=== PATIENT | male | born 1965 | race African-American/Black ===

== ENCOUNTER 2019-08-20 11:41 | Inpatient (IN) | payer OTHER ==
[~2019-08-20] VITALS: Ht 182.9 cm; Wt 56.4 kg
[~2019-08-20 11:41] MED LIST: ACT15 PO; GLIMEPIRIDE2 M1 PO; LANTUS SOLOS100 U/M1 SQ
[2019-08-20 11:50] VITALS: Ht 182.9 cm; Wt 56.4 kg
[2019-08-20 12:23] LABS: BASOPHIL % 0.5 % (0-2); PLATELET COUNT 167 x10^3mcL (130-400)
[2019-08-20 12:24] LABS: RED CELL DISTRIBUTION WIDTH 17.1 % (11.5-14.5)
[2019-08-20 12:46] LABS: BILIRUBIN TOTAL 0.1 mg/dL (0.20-1.00); CARBON DIOXIDE 13.7 mmol/L (21-32); CREATININE SERUM 3.1 mg/dL (0.7-1.3)
[2019-08-20] MEDS ORDERED: NOR5 PO (12:50)
[2019-08-20] MEDS ORDERED: PEPCID AC20 M2 PO (12:50)
[2019-08-20] MEDS ORDERED: KAPVAY0.1 MG PO (12:51)
[2019-08-20] MEDS ORDERED: SODIUM BICARBO650 MG PO (12:51)
[2019-08-20] MEDS ORDERED: COZ25 PO (12:52)
[2019-08-20 13:01] LABS: FREE T4 0.99 ng/dL (0.76-1.46); FREE THYROXINE INDEX 1.8 ug/dL (1.4-4.5); T4(THYROXINE) 5.3 ug/dL (4.7-13.3)
[2019-08-20 13:36] LABS: ALBUMIN 1.8 g/dL (3.4-5.0); POTASSIUM SERUM 6.2 mmol/L (3.5-5.1)
[2019-08-20 17:20] LABS: CALCIUM 7.7 mg/dL (8.5-10.1); CARBON DIOXIDE 12.5 mmol/L (21-32); CREATININE SERUM 3.2 mg/dL (0.7-1.3); POTASSIUM SERUM 5.3 mmol/L (3.5-5.1)
[2019-08-20 22:30] LABS: T3 TOTAL 0.72 ng/mL
[2019-08-21 07:35] LABS: CALCIUM 7.4 mg/dL (8.5-10.1); CARBON DIOXIDE 11.5 mmol/L (21-32); CREATININE SERUM 3.5 mg/dL (0.7-1.3); MAGNESIUM 1.8 mg/dL (1.8-2.4); PHOSPHOROUS 4.5 mg/dL (2.5-4.9)
[2019-08-21 07:36] LABS: BASOPHIL % 0.5 % (0-2); PLATELET COUNT 176 x10^3mcL (130-400)
[2019-08-21 09:05] VITALS: BP 155/82
[2019-08-21 09:22] LABS: rbc morphology (normal/abnorm) ABNORMAL (NORMAL)
[2019-08-21 12:41] VITALS: BP 141/51
[2019-08-21 13:07] LABS: CALCIUM 7.5 mg/dL (8.5-10.1); CARBON DIOXIDE 12.3 mmol/L (21-32); CREATININE SERUM 3.4 mg/dL (0.7-1.3); POTASSIUM SERUM 5.5 mmol/L (3.5-5.1)
[2019-08-21 16:42] VITALS: BP 148/79
[2019-08-21 18:37] LABS: CALCIUM 7.4 mg/dL (8.5-10.1); CARBON DIOXIDE 12.3 mmol/L (21-32); CREATININE SERUM 3.5 mg/dL (0.7-1.3); POTASSIUM SERUM 5.5 mmol/L (3.5-5.1)
[2019-08-21 19:15] VITALS: BP 162/88
[2019-08-21 23:00] VITALS: BP 152/88
[2019-08-22 03:06] VITALS: BP 142/89
[2019-08-22 05:18] LABS: BASOPHIL % 0.4 % (0-2); PLATELET COUNT 151 x10^3mcL (130-400)
[2019-08-22 05:29] LABS: RED CELL DISTRIBUTION WIDTH 15.7 % (11.5-14.5)
[2019-08-22 07:06] LABS: CALCIUM 7.4 mg/dL (8.5-10.1); CARBON DIOXIDE 11.5 mmol/L (21-32); CREATININE SERUM 3.5 mg/dL (0.7-1.3); MAGNESIUM 1.8 mg/dL (1.8-2.4); PHOSPHOROUS 3.9 mg/dL (2.5-4.9); POTASSIUM SERUM 5.4 mmol/L (3.5-5.1)
[2019-08-22 09:19] VITALS: BP 147/83
[2019-08-22 12:45] VITALS: BP 149/85
[2019-08-22 13:25] LABS: CALCIUM 7.4 mg/dL (8.5-10.1); CARBON DIOXIDE 12.5 mmol/L (21-32); CREATININE SERUM 3.5 mg/dL (0.7-1.3); POTASSIUM SERUM 5.4 mmol/L (3.5-5.1)
[2019-08-22 17:35] VITALS: BP 158/88
[2019-08-22 20:13] VITALS: BP 156/88
[2019-08-22 21:35] LABS: microscopic required? YES; urine erythrocyte TRACE (NEGATIVE)
[2019-08-23] VITALS (7 sets, daily range): BP systolic 154–189; BP diastolic 80–981
[2019-08-23 07:14] LABS: CALCIUM 7.4 mg/dL (8.5-10.1); CARBON DIOXIDE 14.7 mmol/L (21-32); CREATININE SERUM 3.4 mg/dL (0.7-1.3); MAGNESIUM 1.7 mg/dL (1.8-2.4); PHOSPHOROUS 4.2 mg/dL (2.5-4.9); POTASSIUM SERUM 4.7 mmol/L (3.5-5.1)
[2019-08-23 07:53] LABS: PLATELET COUNT 129 x10^3mcL (130-400); RED CELL DISTRIBUTION WIDTH 15.8 % (11.5-14.5)
[2019-08-23 07:54] LABS: BASOPHIL % 0.5 % (0-2)
[2019-08-23 13:25] LABS: rbc morphology (normal/abnorm) ABNORMAL (NORMAL)
[2019-08-23 14:07] LABS: rbc morphology (normal/abnorm) ABNORMAL (NORMAL)
[2019-08-24 00:05] VITALS: BP 131/77
[2019-08-24 05:27] VITALS: BP 159/91
[2019-08-24 06:10] LABS: BASOPHIL % 0.5 % (0-2)
[2019-08-24 06:50] LABS: CALCIUM 7.4 mg/dL (8.5-10.1); CARBON DIOXIDE 20.5 mmol/L (21-32); CREATININE SERUM 3.1 mg/dL (0.7-1.3); MAGNESIUM 1.6 mg/dL (1.8-2.4); PHOSPHOROUS 4.3 mg/dL (2.5-4.9)
[2019-08-24 09:19] VITALS: BP 152/84
[2019-08-24 10:37] LABS: PLATELET COUNT 111 x10^3mcL (130-400); RED CELL DISTRIBUTION WIDTH 15.9 % (11.5-14.5)
[2019-08-24 13:19] VITALS: BP 163/93
[2019-08-24 17:17] VITALS: BP 170/99
[2019-08-24 20:30] VITALS: BP 169/91
[2019-08-25 05:35] VITALS: BP 129/80
[2019-08-25 06:53] LABS: CALCIUM 7.8 mg/dL (8.5-10.1); CARBON DIOXIDE 20.1 mmol/L (21-32); CREATININE SERUM 2.8 mg/dL (0.7-1.3); MAGNESIUM 1.9 mg/dL (1.8-2.4); PHOSPHOROUS 4.2 mg/dL (2.5-4.9); POTASSIUM SERUM 4.5 mmol/L (3.5-5.1)
[2019-08-25 07:51] LABS: BASOPHIL % 0 % (0-2); PLATELET COUNT 102 x10^3mcL (130-400); RED CELL DISTRIBUTION WIDTH 16.2 % (11.5-14.5)
[2019-08-25 08:08] VITALS: BP 128/73
[2019-08-25 13:04] VITALS: BP 146/84
== END 2019-08-25 15:11 | disposition left against medical advice (07) | DRG 469 ==
LOC: ED 11:41 → IC 12:33 → DU 12:33 → IC 16:45 → DU 08-22 09:02
PROVIDERS: Emergency Medicine; Family Medicine; Internal Medicine; ADMIT Student in an Organized Health Care Education/Training Program
PROC: 30233N1 Transfusion of Nonautologous Red Blood Cells into Peripheral Vein, Percutaneous Approach (ICD-10-PCS; principal; 2019-08-21)
DX: N17.0 Acute kidney failure with tubular necrosis (principal); R57.1 Hypovolemic shock; E43 Unspecified severe protein-calorie malnutrition; T68.XXXA Hypothermia, initial encounter; E11.21 Type 2 diabetes mellitus with diabetic nephropathy; E11.43 Type 2 diabetes mellitus with diabetic autonomic (poly)neuropathy; D64.9 Anemia, unspecified; T24.292 Burn of second degree of multiple sites of left lower limb, except ankle and foot; E11.22 Type 2 diabetes mellitus with diabetic chronic kidney disease; E11.649 Type 2 diabetes mellitus with hypoglycemia without coma; F12.10 Cannabis abuse, uncomplicated; Z68.1 Body mass index [BMI] 19.9 or less, adult; E87.0 Hyperosmolality and hypernatremia; E87.5 Hyperkalemia; R19.7 Diarrhea, unspecified; E87.8 Other disorders of electrolyte and fluid balance, not elsewhere classified; N18.9 Chronic kidney disease, unspecified; I12.9 Hypertensive chronic kidney disease with stage 1 through stage 4 chronic kidney disease, or unspecified chronic kidney disease; E11.51 Type 2 diabetes mellitus with diabetic peripheral angiopathy without gangrene; J44.1 Chronic obstructive pulmonary disease with (acute) exacerbation; E03.9 Hypothyroidism, unspecified; E87.2 Acidosis; R06.89 Other abnormalities of breathing; Z53.29 Procedure and treatment not carried out because of patient's decision for other reasons; Z79.84 Long term (current) use of oral hypoglycemic drugs; Z91.19 Patient's noncompliance with other medical treatment and regimen; T24.3 Burn of third degree of lower limb, except ankle and foot
CPT/HCPCS: 82962; 84439; 87046; 87046-59; 87107; 97110-GP; 97116-GP; 97530-GP; C9113; G0378; J0360; J1644; J1815; J2543; J3370; J3490; J7030; J7042; J7050; J7120; J7613; P9016; Q0092; Q0163